=== PATIENT | male | born 1960 | race Caucasian/White ===

== ENCOUNTER 2017-03-07 17:47 | Inpatient (IN) | payer OTHER, MEDICARE ==
[~2017-03-07] VITALS: Ht 193 cm; Wt 147.1 kg
[~2017-03-07 17:47] MED LIST: AMLODIPINE BESYL5 MG PO; ASPIR 8181 M1 PO; ASPIRIN325 MG PO; COLACE100 MG PO; COUMADIN5 MG PO; Coumadin,Jantoven PO; DEXILANT60 MG PO; DIFLUCAN200 MG PO; FENOFIBRATE54 M1 PO; FLEXERIL10 MG PO; FUROSEMIDE40 MG PO; GLUCOPHAGE XR,500 MG PO; HUMALOG100 UNIT/1 SC; HYDROCODON-ACE1 EAC7 PO; IMDUR120 MG PO; ISOSORBIDE MON120 M1 PO; KLOR-CON M2020 MEQ PO; L-THYROXINE PO; LASIX40 MG PO; LEVOXYL25 MCG PO; LIPITOR40 MG PO; LISINOPRIL40 MG PO; LOFIBRA134 MG PO; LOFIBRA54 MG PO; LOVENOX40 MG/0.4 SC; Lovenox SC; METFORMIN HCL500 M1 PO; METFORMIN PO; MOTRIN800 MG PO; NITROSTAT0.4 MG SL; NORVASC5 MG PO; OXYCONTIN15 MG PO; PLAVIX75 MG PO; POTASSIUM CHLO20 ME2 PO; RANEXA500 MG PO; SIMVASTATIN80 M1 PO; STOOL SOFTENER100 MG PO; SYNTHROID125 MCG PO; TOFRANIL50 MG PO; TOPROL XL200 MG PO; TRAMADOL HCL E200 M1 PO; TRICOR145 MG PO; ULTRAM ER300 MG PO; ZANTAC150 M1 PO; ZANTAC150 MG PO; ZANTAC300 MG PO; ZESTRIL,PRINIVI40 MG PO; ZOFRAN4 MG PO
[2017-03-07 18:37] LABS: CHLORIDE 99 mEq/L (99-109); POTASSIUM 4.1 mEq/L (3.7-5.4); SODIUM 132 mEq/L (136-147)
[2017-03-07 18:38] LABS: INTER. NORMALIZED RATIO 1.2
[2017-03-07 18:39] LABS: GLUCOSE 311 mg/dL (70-99)
[2017-03-07 18:40] LABS: ANION GAP 10 MEQ/L (2-14); HEMATOCRIT 38.3 % (38.0-50.0); MCH 33.2 PG (29.0-34.0); MCHC 34.5 G/DL (30.0-36.0); MCV 96.5 FL (86-99); MEAN PLAT.VOLUME 10.8 uM^3 (9.0-12.4); RBC DIS.WIDTH-CV 12.8 % (11.8-14.6); RBC DIS.WIDTH-SD 45.5 % (39-53); RED BLOOD COUNT 3.97 M/uL (4.00-5.50); WHITE BLOOD COUNT 5.6 K/uL (4.1-10.2)
[2017-03-07 18:43] LABS: GFR ESTIMATE (CALCULATED) 51 mL/min/
[2017-03-07 18:44] LABS: UREA NITROGEN (BUN) 20 mg/dL (9-23)
[2017-03-07 18:49] LABS: TROP-I INTERPRETATION NEGATIVE; TROPONIN-I < 0.01 ng/mL (0.0-0.30)
[2017-03-07 20:24] LABS: PLATELET COUNT 60 K/uL (156-360)
[2017-03-07] MEDS ORDERED: LEVO-T25 MCG PO (21:18)
[2017-03-07] MEDS ORDERED: PLAVIX75 MG PO (21:21)
[2017-03-07] MEDS ORDERED: ASPIRIN325 MG PO (21:22)
[2017-03-07] MEDS ORDERED: TRAMADOL HCL300 MG PO (21:22)
[2017-03-07 21:23] LABS: PTT 36.6 (25-32)
[2017-03-07] MEDS ORDERED: FENOFIBRATE134 M1 PO (21:36)
[2017-03-07] MEDS ORDERED: MOTRIN600 MG PO (21:37)
[2017-03-07] MEDS ORDERED: TYLENOL EXTRA500 MG PO (21:38)
[2017-03-08 05:25] LABS: ADD MIUA? YES; BILIRUBIN NEGATIVE; BLOOD MODERATE; COLOR AMBER ((YELLOW)); GLUCOSE (STRIP) >=500; KETONES 5; LEUKOCYTES NEGATIVE; NITRITE NEGATIVE; PROTEIN (STRIP) 100; SPECIFIC GRAVITY 1.043 (1.000-1.030)
[2017-03-08 05:56] LABS: BACTERIA 3+ /HPF; EPITHELIAL CELLS 1+ /HPF; MUCUS 1+ /LPF; WHITE BLOOD CELLS 0-5 /HPF (0-5)
[2017-03-08 06:13] LABS: CHLORIDE 100 mEq/L (99-109); POTASSIUM 4.5 mEq/L (3.7-5.4); SODIUM 131 mEq/L (136-147)
[2017-03-08 06:15] LABS: GLUCOSE 329 mg/dL (70-99); HEMATOCRIT 36.8 % (38.0-50.0); MCHC 34.5 G/DL (30.0-36.0); MCV 98.7 FL (86-99); MEAN PLAT.VOLUME 11.4 uM^3 (9.0-12.4); PLATELET COUNT 60 K/uL (156-360); RBC DIS.WIDTH-CV 13.2 % (11.8-14.6); RBC DIS.WIDTH-SD 47.8 % (39-53); RED BLOOD COUNT 3.73 M/uL (4.00-5.50); WHITE BLOOD COUNT 7.3 K/uL (4.1-10.2)
[2017-03-08 06:17] LABS: ANION GAP 11 MEQ/L (2-14); TOTAL BILIRUBIN 1.8 mg/dL (0.0-1.0)
[2017-03-08 06:19] LABS: ALKALINE PHOSPHATASE 82 IU/L (3-129); GFR ESTIMATE (CALCULATED) 51 mL/min/
[2017-03-08 06:20] LABS: UREA NITROGEN (BUN) 21 mg/dL (9-23)
[2017-03-08 06:57] LABS: Estimated Average Glucose 235 mg/dL (70-123); HEMOGLOBIN A1c (GLYCOHEMOGLOB) 9.8 % HGB (Below 5.7)
[2017-03-08 07:55] LABS: POINT-OF-CARE METER ID UU13113702
[2017-03-08 08:57] LABS: INTER. NORMALIZED RATIO 1.1; PTT 44.8 (25-32)
[2017-03-08 09:09] LABS: TROP-I INTERPRETATION NEGATIVE; TROPONIN-I < 0.01 ng/mL (0.0-0.30)
[2017-03-08 11:23] LABS: POINT-OF-CARE METER ID UU13113702
[2017-03-08 14:56] LABS: INTER. NORMALIZED RATIO 1.1; PROTHROMBIN TIME 10.9 (9.2-11.2)
[2017-03-08 15:11] LABS: TROP-I INTERPRETATION NEGATIVE; TROPONIN-I < 0.01 ng/mL (0.0-0.30)
[2017-03-08 15:17] VITALS: BP 142/74
[2017-03-08 17:23] LABS: POINT-OF-CARE METER ID UU13113807
[2017-03-08 20:00] VITALS: BP 177/79
[2017-03-08 21:17] VITALS: BP 140/67
[2017-03-08 22:23] LABS: POINT-OF-CARE METER ID UU13113807
[2017-03-09] VITALS (17 sets, daily range): BP systolic 104–174; BP diastolic 57–98
[2017-03-09 02:57] LABS: POINT-OF-CARE METER ID UU13113807
[2017-03-09 03:35] LABS: HEMATOCRIT 34.2 % (38.0-50.0); MCH 33.6 PG (29.0-34.0); MCHC 34.2 G/DL (30.0-36.0); MCV 98.3 FL (86-99); MEAN PLAT.VOLUME 11.3 uM^3 (9.0-12.4); PLATELET COUNT 53 K/uL (156-360); RBC DIS.WIDTH-CV 13.1 % (11.8-14.6); RBC DIS.WIDTH-SD 46.5 % (39-53); RED BLOOD COUNT 3.48 M/uL (4.00-5.50)
[2017-03-09 03:55] LABS: CHLORIDE 101 mEq/L (99-109); POTASSIUM 4.4 mEq/L (3.7-5.4); SODIUM 129 mEq/L (136-147)
[2017-03-09 03:57] LABS: GLUCOSE 285 mg/dL (70-99)
[2017-03-09 03:58] LABS: ANION GAP 9 MEQ/L (2-14)
[2017-03-09 04:01] LABS: GFR ESTIMATE (CALCULATED) > 59 mL/min/
[2017-03-09 04:02] LABS: UREA NITROGEN (BUN) 21 mg/dL (9-23)
[2017-03-09 08:22] LABS: BASE EXCESS -2.8 mEq/L (-3 to +3); BICARBONATE 23.2 mEq/L (22-26); CARBOXY HGB 2.6 % (0-5); COMMENTS - BLOOD GASES A+C+; DEVICE VM; FI02 50 %; METHEMOGLOBIN 1.8 % (0-1.5); O2 FLOW 12 L/MIN; PCO2 44 mm Hg (35-45); PO2 85 mm Hg (80-100); SITE LR; TOTAL RESP RATE 22 resp/min; pH 7.33 (7.35-7.45)
[2017-03-09 08:32] LABS: POINT-OF-CARE METER ID UU13113698
[2017-03-09 11:37] LABS: POINT-OF-CARE METER ID UU13113698
[2017-03-09 13:18] LABS: BASE EXCESS -0.7 mEq/L (-3 to +3); BICARBONATE 24.9 mEq/L (22-26); CARBOXY HGB 2.7 % (0-5); METHEMOGLOBIN 1.5 % (0-1.5); PCO2 44 mm Hg (35-45); PO2 77 mm Hg (80-100); pH 7.36 (7.35-7.45)
[2017-03-09 13:19] LABS: LUPA PHOSPHOLIPID NEUTRALIZ Negative (Negative)
[2017-03-09 13:19] LABS: COMMENTS - BLOOD GASES A+C+; SITE RR
[2017-03-09 13:20] LABS: DEVICE HFNC; O2 FLOW 10 L/MIN
[2017-03-09 13:25] LABS: POINT-OF-CARE METER ID UU13113819
[2017-03-09 14:10] LABS: TROP-I INTERPRETATION NEGATIVE; TROPONIN-I 0.01 ng/mL (0.0-0.30)
[2017-03-09 15:07] LABS: ABS NEUTROPHIL COUNT 4.6; ATYPICAL LYMPHOCYTE 1.7 %; BAND NEUTROPHILS 10.4 % (0-8.0); EOSINOPHIL ABS CT 0; IMM.PLATELET FRACTION 7.5 (1-7); INSTRUMENT ABS NEUTROPHIL CT 4.1 K/uL; LYMPHOCYTES 10.4 % (15.0-45.0); MEAN PLAT.VOLUME 11.7 uM^3 (9.0-12.4); PLATELET COUNT 50 K/uL (156-360); SEG.NEUTROPHILS 73.1 % (46.0-76.0)
[2017-03-09 15:08] LABS: PLAT.SUFFICIENCY VERY DECREASED
[2017-03-09 15:11] LABS: METH RESISTANT S AUREUS PCR NEGATIVE (NEGATIVE)
[2017-03-09 15:23] LABS: PROBE CHECK PASS; SPECIMEN PROCESSING CONTROL PASS
[2017-03-09 16:40] LABS: HEMATOCRIT 33.9 % (38.0-50.0); MCH 33.6 PG (29.0-34.0); MCHC 33.6 G/DL (30.0-36.0); RBC DIS.WIDTH-CV 13.3 % (11.8-14.6); RBC DIS.WIDTH-SD 49.8 % (39-53); RED BLOOD COUNT 3.39 M/uL (4.00-5.50); WHITE BLOOD COUNT 5.5 K/uL (4.1-10.2)
[2017-03-09 17:24] LABS: POINT-OF-CARE METER ID UU14162636
[2017-03-09 19:34] LABS: INFLUENZA A VIRAL ANTIGEN NEGATIVE; INFLUENZA B VIRAL ANTIGEN NEGATIVE
[2017-03-09 19:45] LABS: ANION GAP 8 MEQ/L (2-14); CHLORIDE 102 MEQ/L (99-109); GFR ESTIMATE (CALCULATED) > 59 mL/min/; GLUCOSE 220 mg/dL (70-99); SAMPLE HEMOLYSIS CHECK 0; SAMPLE ICTERIC CHECK 0; SAMPLE LIPEMIA CHECK 0; SODIUM 133 MEQ/L (136-147); UREA NITROGEN (BUN) 19 mg/dL (9-23)
[2017-03-10] VITALS (24 sets, daily range): BP systolic 106–169; BP diastolic 63–97
[2017-03-10 05:52] LABS: BASE EXCESS -0.5 mEq/L (-3 to +3); BICARBONATE 24.2 mEq/L (22-26); COMMENTS - BLOOD GASES A+C+; DEVICE NCH; METHEMOGLOBIN 1.9 % (0-1.5); O2 FLOW 8 L/MIN; PCO2 39 mm Hg (35-45); PO2 74 mm Hg (80-100); SITE RR; TOTAL RESP RATE 24 resp/min
[2017-03-10 07:06] LABS: HEMATOCRIT 32.2 % (38.0-50.0); MCH 33.3 PG (29.0-34.0); MCHC 33.2 G/DL (30.0-36.0); MCV 100.3 FL (86-99); RBC DIS.WIDTH-CV 13.6 % (11.8-14.6); RBC DIS.WIDTH-SD 50.2 % (39-53); RED BLOOD COUNT 3.21 M/uL (4.00-5.50); WHITE BLOOD COUNT 5.5 K/uL (4.1-10.2)
[2017-03-10 07:45] LABS: IMM.PLATELET FRACTION 8.1 (1-7); MEAN PLAT.VOLUME 11.8 uM^3 (9.0-12.4); PLAT.SUFFICIENCY DECREASED; PLATELET COUNT 45 K/uL (156-360)
[2017-03-10 08:25] LABS: ANION GAP 10 MEQ/L (2-14); CHLORIDE 105 MEQ/L (99-109); GFR ESTIMATE (CALCULATED) > 59 mL/min/; GLUCOSE 225 mg/dL (70-99); POTASSIUM 3.7 MEQ/L (3.7-5.4); SAMPLE HEMOLYSIS CHECK 0; SAMPLE ICTERIC CHECK 0; SAMPLE LIPEMIA CHECK 0; SODIUM 136 MEQ/L (136-147); UREA NITROGEN (BUN) 19 mg/dL (9-23)
[2017-03-10 09:20] LABS: POINT-OF-CARE METER ID UU13113803
[2017-03-10 12:22] LABS: POINT-OF-CARE METER ID UU13113803
[2017-03-10 14:53] LABS: Heparin Induced Plt Ab Negative (Negative)
[2017-03-10 16:14] LABS: POINT-OF-CARE METER ID UU13113803
[2017-03-10 21:00] LABS: POINT-OF-CARE METER ID UU14174217
[2017-03-11] VITALS (21 sets, daily range): BP systolic 127–193; BP diastolic 59–99
[2017-03-11 07:26] LABS: HEMATOCRIT 33.3 % (38.0-50.0); MCH 33.2 PG (29.0-34.0); MCHC 32.7 G/DL (30.0-36.0); MCV 101.5 FL (86-99); MEAN PLAT.VOLUME 12.6 uM^3 (9.0-12.4); PLATELET COUNT 58 K/uL (156-360); RBC DIS.WIDTH-CV 14.1 % (11.8-14.6); RBC DIS.WIDTH-SD 53.1 % (39-53); RED BLOOD COUNT 3.28 M/uL (4.00-5.50); WHITE BLOOD COUNT 7.9 K/uL (4.1-10.2)
[2017-03-11 08:00] LABS: POINT-OF-CARE METER ID UU13113803
[2017-03-11 08:14] LABS: ANION GAP 11 MEQ/L (2-14); CHLORIDE 106 MEQ/L (99-109); GFR ESTIMATE (CALCULATED) > 59 mL/min/; GLUCOSE 150 mg/dL (70-99); POTASSIUM 3.7 MEQ/L (3.7-5.4); SAMPLE HEMOLYSIS CHECK 0; SAMPLE ICTERIC CHECK 0; SAMPLE LIPEMIA CHECK 0; SODIUM 137 MEQ/L (136-147); UREA NITROGEN (BUN) 18 mg/dL (9-23)
[2017-03-11 11:56] LABS: POINT-OF-CARE METER ID UU13113803
[2017-03-11 16:48] LABS: POINT-OF-CARE METER ID UU13113803
[2017-03-11 19:34] LABS: BASE EXCESS 1.6 mEq/L (-3 to +3); BICARBONATE 25.8 mEq/L (22-26); CARBOXY HGB 2.3 % (0-5); COMMENTS - BLOOD GASES A+C+; DEVICE HFNC; METHEMOGLOBIN 1.5 % (0-1.5); O2 FLOW 6 L/MIN; PCO2 38 mm Hg (35-45); PO2 66 mm Hg (80-100); SITE RR; pH 7.44 (7.35-7.45)
[2017-03-11 19:35] LABS: TOTAL RESP RATE 22 resp/min
[2017-03-11 22:41] LABS: POINT-OF-CARE METER ID UU13113803
[2017-03-12] VITALS (24 sets, daily range): BP systolic 102–203; BP diastolic 65–100
[2017-03-12 01:46] LABS: ALKALINE PHOSPHATASE 98 IU/L (3-129)
[2017-03-12 01:48] LABS: DIRECT BILIRUBIN 1.6 mg/dL (0.0-0.3)
[2017-03-12 01:50] LABS: TOTAL BILIRUBIN 2.3 mg/dL (0.0-1.0)
[2017-03-12 03:39] LABS: HEMATOCRIT 33.1 % (38.0-50.0); MCH 33.2 PG (29.0-34.0); MCHC 33.5 G/DL (30.0-36.0); MCV 99.1 FL (86-99); MEAN PLAT.VOLUME 12.2 uM^3 (9.0-12.4); RBC DIS.WIDTH-CV 14.1 % (11.8-14.6); RBC DIS.WIDTH-SD 51.8 % (39-53); RED BLOOD COUNT 3.34 M/uL (4.00-5.50)
[2017-03-12 03:40] LABS: PLATELET COUNT 106 K/uL (156-360); WHITE BLOOD COUNT 10.9 K/uL (4.1-10.2)
[2017-03-12 04:34] LABS: VANCOMYCIN, TROUGH 11.7 MCG/ML (10-20)
[2017-03-12 08:31] LABS: POINT-OF-CARE METER ID UU13113803
[2017-03-12 10:35] LABS: ANION GAP 12 MEQ/L (2-14); CHLORIDE 106 MEQ/L (99-109); GFR ESTIMATE (CALCULATED) > 59 mL/min/; GLUCOSE 131 mg/dL (70-99); POTASSIUM 3.3 MEQ/L (3.7-5.4); SODIUM 139 MEQ/L (136-147); UREA NITROGEN (BUN) 17 mg/dL (9-23)
[2017-03-12 13:00] LABS: POINT-OF-CARE METER ID UU13113803
[2017-03-12 13:43] LABS: MAGNESIUM 1.8 mg/dl (1.3-2.7)
[2017-03-12 16:14] LABS: TROP-I INTERPRETATION INDETERMINATE; TROPONIN-I 0.32 ng/mL (0.0-0.30)
[2017-03-12 17:07] LABS: UFH SRA Result Negative (Negative)
[2017-03-12 17:39] LABS: POINT-OF-CARE METER ID UU13113803
[2017-03-12 22:31] LABS: TROP-I INTERPRETATION NEGATIVE; TROPONIN-I 0.16 ng/mL (0.0-0.30)
[2017-03-13] VITALS (27 sets, daily range): BP systolic 134–245; BP diastolic 66–125
[2017-03-13 02:21] LABS: POINT-OF-CARE METER ID UU13113803
[2017-03-13 04:46] LABS: EOSINOPHIL (%) 0 % (0-5); HEMATOCRIT 35.6 % (38.0-50.0); IMMATURE GRANULOCYTE (%) 1.3 % (0.0-0.7); IMMATURE GRANULOCYTE COUNT 0.1 K/uL; INSTRUMENT ABS NEUTROPHIL CT 7.3 K/uL; LYMPHOCYTE COUNT 0.9 K/uL (1.0-2.8); MCH 32.6 PG (29.0-34.0); MCHC 32.6 G/DL (30.0-36.0); MEAN PLAT.VOLUME 12.2 uM^3 (9.0-12.4); MONOCYTE (%) 2.9 % (3-12); MONOCYTE COUNT 0.3 K/uL (0-0.8); NEUTROPHIL (%) 85.4 % (45-76); NEUTROPHIL COUNT 7.3 K/uL (1.8-6.4); RBC DIS.WIDTH-CV 14.6 % (11.8-14.6); RBC DIS.WIDTH-SD 53.9 % (39-53); RED BLOOD COUNT 3.56 M/uL (4.00-5.50); WHITE BLOOD COUNT 8.6 K/uL (4.1-10.2)
[2017-03-13 04:55] LABS: CHLORIDE 108 mEq/L (99-109); POTASSIUM 3.9 mEq/L (3.7-5.4); SODIUM 143 mEq/L (136-147)
[2017-03-13 04:56] LABS: MAGNESIUM 1.9 mg/dL (1.3-2.7)
[2017-03-13 05:07] LABS: TROP-I INTERPRETATION NEGATIVE
[2017-03-13 05:17] LABS: GFR ESTIMATE (CALCULATED) > 59 mL/min/; GLUCOSE 371 mg/dL (70-99); TOTAL BILIRUBIN 1.8 MG/DL (0.0-1.0); UREA NITROGEN (BUN) 28 mg/dL (9-23)
[2017-03-13 05:18] LABS: ALKALINE PHOSPHATASE 96 IU/L (3-129); ANION GAP 21 MEQ/L (2-14); CREATINE KINASE 48 IU/L (1-294); DIRECT BILIRUBIN 1.3 mg/dL (0.0-0.3)
[2017-03-13 05:26] LABS: PLATELET COUNT 168 K/uL (156-360)
[2017-03-13 06:28] LABS: CARBON DIOXIDE (BICARBONATE) 17.1 MEQ/L (20-31)
[2017-03-13 12:17] LABS: ADD MIUA? YES; BILIRUBIN NEGATIVE; BLOOD MODERATE; COLOR YELLOW ((YELLOW)); GLUCOSE (STRIP) >=500; KETONES 20; LEUKOCYTES NEGATIVE; NITRITE NEGATIVE; PROTEIN (STRIP) NEGATIVE; SPECIFIC GRAVITY 1.024 (1.000-1.030)
[2017-03-13 12:19] LABS: POINT-OF-CARE METER ID UU13113803
[2017-03-13 12:56] LABS: BACTERIA RARE /HPF; EPITHELIAL CELLS RARE /HPF; MUCUS TRACE /LPF; RED BLOOD CELLS 0-5 /HPF (0-5); UCUL ADDED? NO; WHITE BLOOD CELLS 0-5 /HPF (0-5)
[2017-03-13 18:28] LABS: POINT-OF-CARE METER ID UU13113803
[2017-03-14] VITALS (22 sets, daily range): BP systolic 141–218; BP diastolic 73–110
[2017-03-14 00:44] LABS: POINT-OF-CARE METER ID UU13113803
[2017-03-14 04:07] LABS: EOSINOPHIL (%) 0 % (0-5); HEMATOCRIT 30.9 % (38.0-50.0); IMMATURE GRANULOCYTE COUNT 0.1 K/uL; INSTRUMENT ABS NEUTROPHIL CT 8.1 K/uL; MCH 33.3 PG (29.0-34.0); MCHC 34.6 G/DL (30.0-36.0); MCV 96.3 FL (86-99); MEAN PLAT.VOLUME 11.6 uM^3 (9.0-12.4); MONOCYTE (%) 5.5 % (3-12); MONOCYTE COUNT 0.5 K/uL (0-0.8); NEUTROPHIL (%) 82.8 % (45-76); NEUTROPHIL COUNT 8.1 K/uL (1.8-6.4); PLATELET COUNT 202 K/uL (156-360); RBC DIS.WIDTH-CV 14.6 % (11.8-14.6); RBC DIS.WIDTH-SD 51.4 % (39-53); RED BLOOD COUNT 3.21 M/uL (4.00-5.50); WHITE BLOOD COUNT 9.8 K/uL (4.1-10.2)
[2017-03-14 04:15] LABS: CHLORIDE 108 mEq/L (99-109); SODIUM 140 mEq/L (136-147)
[2017-03-14 04:18] LABS: GLUCOSE 309 mg/dL (70-99)
[2017-03-14 04:19] LABS: ANION GAP 11 MEQ/L (2-14); TOTAL BILIRUBIN 1.9 mg/dL (0.0-1.0)
[2017-03-14 04:21] LABS: ALKALINE PHOSPHATASE 106 IU/L (3-129)
[2017-03-14 04:22] LABS: GFR ESTIMATE (CALCULATED) > 59 mL/min/
[2017-03-14 04:23] LABS: DIRECT BILIRUBIN 1.5 mg/dL (0.0-0.3); UREA NITROGEN (BUN) 32 mg/dL (9-23)
[2017-03-14 04:26] LABS: POTASSIUM 3.1 mEq/L (3.7-5.4)
[2017-03-14 12:17] LABS: POINT-OF-CARE METER ID UU14162636
[2017-03-14 15:22] LABS: TROP-I INTERPRETATION NEGATIVE; TROPONIN-I 0.22 ng/mL (0.0-0.30)
[2017-03-14 17:41] LABS: POINT-OF-CARE METER ID UU14162636
[2017-03-14 23:14] LABS: POINT-OF-CARE METER ID UU14162636
[2017-03-14 23:29] LABS: TROP-I INTERPRETATION NEGATIVE; TROPONIN-I 0.25 ng/mL (0.0-0.30)
[2017-03-15] VITALS (13 sets, daily range): BP systolic 0–192; BP diastolic 0–112
[2017-03-15 06:38] LABS: EOSINOPHIL (%) 0.1 % (0-5); HEMATOCRIT 33.6 % (38.0-50.0); IMMATURE GRANULOCYTE COUNT 0.1 K/uL; INSTRUMENT ABS NEUTROPHIL CT 7.3 K/uL; LYMPHOCYTE COUNT 1.1 K/uL (1.0-2.8); MCH 32.9 PG (29.0-34.0); MCHC 33.3 G/DL (30.0-36.0); MCV 98.8 FL (86-99); MEAN PLAT.VOLUME 11.6 uM^3 (9.0-12.4); MONOCYTE (%) 3.9 % (3-12); MONOCYTE COUNT 0.3 K/uL (0-0.8); NEUTROPHIL (%) 82.9 % (45-76); NEUTROPHIL COUNT 7.3 K/uL (1.8-6.4); PLATELET COUNT 203 K/uL (156-360); RBC DIS.WIDTH-SD 54.4 % (39-53); WHITE BLOOD COUNT 8.8 K/uL (4.1-10.2)
[2017-03-15 06:56] LABS: ALKALINE PHOSPHATASE 98 IU/L (3-129); ANION GAP 8 MEQ/L (2-14); CHLORIDE 103 MEQ/L (99-109); DIRECT BILIRUBIN 1.1 mg/dL (0.0-0.3); GFR ESTIMATE (CALCULATED) > 59 mL/min/; GLUCOSE 280 mg/dL (70-99); POTASSIUM 3.5 MEQ/L (3.7-5.4); SAMPLE HEMOLYSIS CHECK 0; SAMPLE ICTERIC CHECK 0; SAMPLE LIPEMIA CHECK 0; SODIUM 137 MEQ/L (136-147); TOTAL BILIRUBIN 1.9 MG/DL (0.0-1.0); UREA NITROGEN (BUN) 25 mg/dL (9-23)
[2017-03-15 07:07] LABS: TROP-I INTERPRETATION NEGATIVE; TROPONIN-I 0.15 ng/mL (0.0-0.30)
[2017-03-15 17:48] LABS: POINT-OF-CARE METER ID UU14162636
[2017-03-15 22:36] LABS: POINT-OF-CARE METER ID UU14162636
[2017-03-16] VITALS: BP 145/64
[2017-03-16 05:49] LABS: EOSINOPHIL (%) 0.4 % (0-5); HEMATOCRIT 31.9 % (38.0-50.0); IMMATURE GRANULOCYTE (%) 1.5 % (0.0-0.7); IMMATURE GRANULOCYTE COUNT 0.1 K/uL; INSTRUMENT ABS NEUTROPHIL CT 7.2 K/uL; LYMPHOCYTE COUNT 1.4 K/uL (1.0-2.8); MCH 32.6 PG (29.0-34.0); MCV 101.9 FL (86-99); MEAN PLAT.VOLUME 12.1 uM^3 (9.0-12.4); MONOCYTE (%) 3.1 % (3-12); MONOCYTE COUNT 0.3 K/uL (0-0.8); NEUTROPHIL (%) 79.5 % (45-76); NEUTROPHIL COUNT 7.2 K/uL (1.8-6.4); PLATELET COUNT 191 K/uL (156-360); RBC DIS.WIDTH-SD 56.2 % (39-53); RED BLOOD COUNT 3.13 M/uL (4.00-5.50); WHITE BLOOD COUNT 9.1 K/uL (4.1-10.2)
[2017-03-16 06:12] LABS: ANION GAP 5 MEQ/L (2-14); CHLORIDE 103 MEQ/L (99-109); GFR ESTIMATE (CALCULATED) > 59 mL/min/; GLUCOSE 136 mg/dL (70-99); MAGNESIUM 1.9 mg/dl (1.3-2.7); POTASSIUM 3.3 MEQ/L (3.7-5.4); SAMPLE HEMOLYSIS CHECK 0; SAMPLE ICTERIC CHECK 0; SAMPLE LIPEMIA CHECK 0; SODIUM 137 MEQ/L (136-147); UREA NITROGEN (BUN) 18 mg/dL (9-23)
[2017-03-16 08:00] VITALS: BP 161/86
[2017-03-16 08:10] LABS: POINT-OF-CARE METER ID UU14162636
[2017-03-16 13:00] VITALS: BP 130/70
[2017-03-16 16:46] LABS: POINT-OF-CARE METER ID UU13113803
[2017-03-16 18:00] VITALS: BP 152/91
[2017-03-16 19:00] VITALS: BP 152/91
[2017-03-16 21:00] VITALS: BP 152/91
[2017-03-17] VITALS: BP 188/76
[2017-03-17 04:00] VITALS: BP 147/87
[2017-03-17 06:00] VITALS: BP 147/87
[2017-03-17 06:32] LABS: ANION GAP 8 MEQ/L (2-14); CHLORIDE 101 MEQ/L (99-109); GFR ESTIMATE (CALCULATED) > 59 mL/min/; GLUCOSE 143 mg/dL (70-99); MAGNESIUM 1.9 mg/dl (1.3-2.7); POTASSIUM 3.6 MEQ/L (3.7-5.4); SAMPLE HEMOLYSIS CHECK 0; SAMPLE ICTERIC CHECK 0; SAMPLE LIPEMIA CHECK 0; SODIUM 136 MEQ/L (136-147); UREA NITROGEN (BUN) 16 mg/dL (9-23)
[2017-03-17 06:40] LABS: EOSINOPHIL (%) 0.6 % (0-5); EOSINOPHIL COUNT 0.1 K/uL (0-0.3); HEMATOCRIT 35.7 % (38.0-50.0); IMMATURE GRANULOCYTE (%) 2.4 % (0.0-0.7); IMMATURE GRANULOCYTE COUNT 0.2 K/uL; INSTRUMENT ABS NEUTROPHIL CT 7.6 K/uL; LYMPHOCYTE COUNT 1.6 K/uL (1.0-2.8); MCHC 32.2 G/DL (30.0-36.0); MCV 102.6 FL (86-99); MEAN PLAT.VOLUME 11.9 uM^3 (9.0-12.4); MONOCYTE (%) 4.4 % (3-12); MONOCYTE COUNT 0.4 K/uL (0-0.8); NEUTROPHIL (%) 76.1 % (45-76); NEUTROPHIL COUNT 7.6 K/uL (1.8-6.4); RBC DIS.WIDTH-CV 14.9 % (11.8-14.6); RBC DIS.WIDTH-SD 55.9 % (39-53); RED BLOOD COUNT 3.48 M/uL (4.00-5.50)
[2017-03-17 06:52] LABS: PLATELET COUNT 251 K/uL (156-360)
[2017-03-17 09:00] VITALS: BP 153/69
[2017-03-17 12:45] VITALS: BP 118/70
[2017-03-17 20:00] VITALS: BP 134/73
[2017-03-17 22:25] LABS: POINT-OF-CARE METER ID UU14174217
[2017-03-18] VITALS (7 sets, daily range): BP systolic 124–158; BP diastolic 71–741
[2017-03-18 07:25] LABS: EOSINOPHIL (%) 0.9 % (0-5); EOSINOPHIL COUNT 0.1 K/uL (0-0.3); HEMATOCRIT 30.3 % (38.0-50.0); IMMATURE GRANULOCYTE (%) 1.9 % (0.0-0.7); IMMATURE GRANULOCYTE COUNT 0.2 K/uL; INSTRUMENT ABS NEUTROPHIL CT 5.9 K/uL; LYMPHOCYTE COUNT 1.3 K/uL (1.0-2.8); MCH 33.6 PG (29.0-34.0); MCHC 32.7 G/DL (30.0-36.0); MCV 102.7 FL (86-99); MEAN PLAT.VOLUME 10.3 uM^3 (9.0-12.4); MONOCYTE (%) 4.6 % (3-12); MONOCYTE COUNT 0.4 K/uL (0-0.8); NEUTROPHIL (%) 75.2 % (45-76); NEUTROPHIL COUNT 5.9 K/uL (1.8-6.4); PLATELET COUNT 270 K/uL (156-360); RBC DIS.WIDTH-CV 14.7 % (11.8-14.6); RBC DIS.WIDTH-SD 55.8 % (39-53); RED BLOOD COUNT 2.95 M/uL (4.00-5.50); WHITE BLOOD COUNT 7.8 K/uL (4.1-10.2)
[2017-03-18 09:14] LABS: ANION GAP 6 MEQ/L (2-14); CHLORIDE 103 MEQ/L (99-109); GFR ESTIMATE (CALCULATED) > 59 mL/min/; GLUCOSE 149 mg/dL (70-99); MAGNESIUM 2.1 mg/dl (1.3-2.7); POTASSIUM 4.5 MEQ/L (3.7-5.4); SAMPLE HEMOLYSIS CHECK 0; SAMPLE ICTERIC CHECK 0; SAMPLE LIPEMIA CHECK 0; SODIUM 136 MEQ/L (136-147); UREA NITROGEN (BUN) 15 mg/dL (9-23)
[2017-03-18 23:26] LABS: POINT-OF-CARE METER ID UU14188577
[2017-03-19 02:41] VITALS: BP 142/81
[2017-03-19 04:56] LABS: EOSINOPHIL (%) 0.8 % (0-5); EOSINOPHIL COUNT 0.1 K/uL (0-0.3); HEMATOCRIT 29.5 % (38.0-50.0); IMMATURE GRANULOCYTE (%) 1.5 % (0.0-0.7); IMMATURE GRANULOCYTE COUNT 0.1 K/uL; INSTRUMENT ABS NEUTROPHIL CT 5.3 K/uL; LYMPHOCYTE COUNT 1.4 K/uL (1.0-2.8); MCHC 31.9 G/DL (30.0-36.0); MCV 103.5 FL (86-99); MEAN PLAT.VOLUME 10.5 uM^3 (9.0-12.4); MONOCYTE (%) 6.2 % (3-12); MONOCYTE COUNT 0.5 K/uL (0-0.8); NEUTROPHIL (%) 72.5 % (45-76); NEUTROPHIL COUNT 5.3 K/uL (1.8-6.4); PLATELET COUNT 326 K/uL (156-360); RBC DIS.WIDTH-CV 14.8 % (11.8-14.6); RBC DIS.WIDTH-SD 55.8 % (39-53); RED BLOOD COUNT 2.85 M/uL (4.00-5.50); WHITE BLOOD COUNT 7.3 K/uL (4.1-10.2)
[2017-03-19 05:10] LABS: CHLORIDE 104 mEq/L (99-109); SODIUM 137 mEq/L (136-147)
[2017-03-19 05:11] LABS: MAGNESIUM 1.6 mg/dL (1.3-2.7)
[2017-03-19 05:13] LABS: ANION GAP 5 MEQ/L (2-14)
[2017-03-19 05:15] LABS: GLUCOSE 84 mg/dL (70-99)
[2017-03-19 05:16] LABS: GFR ESTIMATE (CALCULATED) > 59 mL/min/; UREA NITROGEN (BUN) 15 mg/dL (9-23)
[2017-03-19 05:29] VITALS: BP 138/80
[2017-03-19 08:02] VITALS: BP 167/92
[2017-03-19 16:42] VITALS: BP 125/63
[2017-03-19 19:27] VITALS: BP 130/66
[2017-03-19 23:52] VITALS: BP 135/70
[2017-03-20 03:34] VITALS: BP 139/76
[2017-03-20 05:20] LABS: EOSINOPHIL (%) 0.8 % (0-5); EOSINOPHIL COUNT 0.1 K/uL (0-0.3); HEMATOCRIT 29.5 % (38.0-50.0); IMMATURE GRANULOCYTE COUNT 0.1 K/uL; INSTRUMENT ABS NEUTROPHIL CT 6.6 K/uL; LYMPHOCYTE COUNT 1.8 K/uL (1.0-2.8); MCH 32.9 PG (29.0-34.0); MCHC 31.9 G/DL (30.0-36.0); MCV 103.1 FL (86-99); MEAN PLAT.VOLUME 10.3 uM^3 (9.0-12.4); MONOCYTE (%) 6.2 % (3-12); MONOCYTE COUNT 0.6 K/uL (0-0.8); NEUTROPHIL (%) 71.8 % (45-76); NEUTROPHIL COUNT 6.6 K/uL (1.8-6.4); PLATELET COUNT 377 K/uL (156-360); RBC DIS.WIDTH-CV 14.7 % (11.8-14.6); RBC DIS.WIDTH-SD 54.6 % (39-53); RED BLOOD COUNT 2.86 M/uL (4.00-5.50); WHITE BLOOD COUNT 9.1 K/uL (4.1-10.2)
[2017-03-20 05:58] LABS: ANION GAP 7 MEQ/L (2-14); CHLORIDE 101 MEQ/L (99-109); GFR ESTIMATE (CALCULATED) > 59 mL/min/; GLUCOSE 69 mg/dL (70-99); POTASSIUM 4.4 MEQ/L (3.7-5.4); SAMPLE HEMOLYSIS CHECK 0; SAMPLE ICTERIC CHECK 0; SAMPLE LIPEMIA CHECK 0; SODIUM 136 MEQ/L (136-147); UREA NITROGEN (BUN) 14 mg/dL (9-23)
[2017-03-20 08:08] VITALS: BP 134/85
[2017-03-20 11:56] LABS: POINT-OF-CARE METER ID UU14188577
[2017-03-20 12:09] VITALS: BP 100/58
[2017-03-20 16:40] LABS: POINT-OF-CARE METER ID UU14188577
[2017-03-20 17:16] VITALS: BP 105/59
[2017-03-20 20:33] VITALS: BP 121/60
[2017-03-20 21:54] LABS: POINT-OF-CARE METER ID UU14149397
[2017-03-21 00:36] VITALS: BP 138/72
[2017-03-21 05:28] LABS: EOSINOPHIL (%) 1.3 % (0-5); EOSINOPHIL COUNT 0.1 K/uL (0-0.3); HEMATOCRIT 29.2 % (38.0-50.0); IMMATURE GRANULOCYTE (%) 0.9 % (0.0-0.7); IMMATURE GRANULOCYTE COUNT 0.1 K/uL; INSTRUMENT ABS NEUTROPHIL CT 5.5 K/uL; LYMPHOCYTE COUNT 1.4 K/uL (1.0-2.8); MCH 33.2 PG (29.0-34.0); MCHC 31.5 G/DL (30.0-36.0); MCV 105.4 FL (86-99); MEAN PLAT.VOLUME 9.8 uM^3 (9.0-12.4); MONOCYTE (%) 5.8 % (3-12); MONOCYTE COUNT 0.4 K/uL (0-0.8); NEUTROPHIL COUNT 5.5 K/uL (1.8-6.4); PLATELET COUNT 388 K/uL (156-360); RBC DIS.WIDTH-SD 55.9 % (39-53); RED BLOOD COUNT 2.77 M/uL (4.00-5.50); WHITE BLOOD COUNT 7.5 K/uL (4.1-10.2)
[2017-03-21 06:01] LABS: ANION GAP 7 MEQ/L (2-14); CHLORIDE 99 MEQ/L (99-109); GFR ESTIMATE (CALCULATED) > 59 mL/min/; MAGNESIUM 2.1 mg/dl (1.3-2.7); POTASSIUM 4.6 MEQ/L (3.7-5.4); SAMPLE HEMOLYSIS CHECK 0; SAMPLE ICTERIC CHECK 0; SAMPLE LIPEMIA CHECK 0; SODIUM 136 MEQ/L (136-147); UREA NITROGEN (BUN) 17 mg/dL (9-23)
[2017-03-21 06:02] LABS: GLUCOSE 98 mg/dL (70-99)
[2017-03-21 07:00] VITALS: BP 124/69
[2017-03-21 12:01] LABS: POINT-OF-CARE METER ID UU14188577
[2017-03-21 12:27] VITALS: BP 115/67
[2017-03-21 15:36] VITALS: BP 101/62
[2017-03-21 19:34] LABS: DRVVT Mixing Study Interp Not Indicated (()); PROTEIN C FUNCTIONAL ACTIVITY+ 52 % (70-180); PTT-LA 87 sec (<=40); PTT-LA Reflex Has been added (()); Protein S, Free 121 % normal (57-171); dRVVT Screen 50 sec (<=45)
[2017-03-21 19:52] VITALS: BP 93/54
[2017-03-22] VITALS (7 sets, daily range): BP systolic 96–119; BP diastolic 54–69
[2017-03-22 05:25] LABS: EOSINOPHIL (%) 1.4 % (0-5); EOSINOPHIL COUNT 0.1 K/uL (0-0.3); HEMATOCRIT 28.8 % (38.0-50.0); IMMATURE GRANULOCYTE (%) 0.7 % (0.0-0.7); IMMATURE GRANULOCYTE COUNT 0.1 K/uL; INSTRUMENT ABS NEUTROPHIL CT 5.9 K/uL; LYMPHOCYTE COUNT 1.5 K/uL (1.0-2.8); MCH 33.3 PG (29.0-34.0); MCHC 31.6 G/DL (30.0-36.0); MCV 105.5 FL (86-99); MEAN PLAT.VOLUME 10.2 uM^3 (9.0-12.4); MONOCYTE (%) 5.6 % (3-12); MONOCYTE COUNT 0.5 K/uL (0-0.8); NEUTROPHIL (%) 73.2 % (45-76); NEUTROPHIL COUNT 5.9 K/uL (1.8-6.4); PLATELET COUNT 439 K/uL (156-360); RBC DIS.WIDTH-SD 55.1 % (39-53); RED BLOOD COUNT 2.73 M/uL (4.00-5.50)
[2017-03-22 05:37] LABS: ANION GAP 8 MEQ/L (2-14); C-REACTIVE PROTEIN 119.4 MG/L (0-10); CHLORIDE 99 MEQ/L (99-109); GFR ESTIMATE (CALCULATED) > 59 mL/min/; GLUCOSE 87 mg/dL (70-99); MAGNESIUM 2.1 mg/dl (1.3-2.7); POTASSIUM 4.7 MEQ/L (3.7-5.4); SAMPLE HEMOLYSIS CHECK 0; SAMPLE ICTERIC CHECK 0; SAMPLE LIPEMIA CHECK 0; SODIUM 135 MEQ/L (136-147); UREA NITROGEN (BUN) 20 mg/dL (9-23)
[2017-03-22 09:16] LABS: ERTH.SED.RATE 63 MM/HR (0-20)
[2017-03-22 12:26] LABS: ANTITHROMBIN III ACTIVITY+ 74 % activi (80-120)
[2017-03-22 16:52] LABS: POINT-OF-CARE METER ID UU14149397
[2017-03-22 21:23] LABS: POINT-OF-CARE METER ID UU14188577
[2017-03-23] VITALS (7 sets, daily range): BP systolic 103–142; BP diastolic 60–77
[2017-03-23 05:22] LABS: EOSINOPHIL (%) 2.1 % (0-5); EOSINOPHIL COUNT 0.1 K/uL (0-0.3); IMMATURE GRANULOCYTE (%) 0.6 % (0.0-0.7); INSTRUMENT ABS NEUTROPHIL CT 4.6 K/uL; LYMPHOCYTE COUNT 1.4 K/uL (1.0-2.8); MCH 33.6 PG (29.0-34.0); MCHC 31.9 G/DL (30.0-36.0); MCV 105.5 FL (86-99); MEAN PLAT.VOLUME 9.7 uM^3 (9.0-12.4); MONOCYTE (%) 6.6 % (3-12); MONOCYTE COUNT 0.4 K/uL (0-0.8); NEUTROPHIL (%) 69.2 % (45-76); NEUTROPHIL COUNT 4.6 K/uL (1.8-6.4); PLATELET COUNT 413 K/uL (156-360); RBC DIS.WIDTH-CV 14.9 % (11.8-14.6); RBC DIS.WIDTH-SD 54.7 % (39-53); RED BLOOD COUNT 2.56 M/uL (4.00-5.50); WHITE BLOOD COUNT 6.6 K/uL (4.1-10.2)
[2017-03-23 05:50] LABS: ANION GAP 6 MEQ/L (2-14); CHLORIDE 100 MEQ/L (99-109); GFR ESTIMATE (CALCULATED) > 59 mL/min/; GLUCOSE 89 mg/dL (70-99); MAGNESIUM 2.1 mg/dl (1.3-2.7); POTASSIUM 4.2 MEQ/L (3.7-5.4); SAMPLE HEMOLYSIS CHECK 0; SAMPLE ICTERIC CHECK 0; SAMPLE LIPEMIA CHECK 0; SODIUM 136 MEQ/L (136-147); UREA NITROGEN (BUN) 17 mg/dL (9-23)
[2017-03-23 06:50] LABS: POINT-OF-CARE METER ID UU14149397
[2017-03-23 10:48] LABS: APPEARANCE YELLOW/CLOUDY
[2017-03-23 10:49] LABS: RED CELL AREA COUNTED 8; RED CELL COUNT 358 /MM^3 (0-1); RED CELL DILUTION 1; WBC AREA COUNTED 0.4; WBC DILUTION 1; WHITE CELL COUNT 14175 /MM^3 (0-200.0); WHITE CELL RAW COUNT 567
[2017-03-23 10:50] LABS: MONO RAW COUNT 4; MONONUCLEAR WBC'S 4 %; POLY RAW COUNT 96; POLYNUCLEAR WBC'S 96 % (0-25); SYNOVIAL FLUID EOSINOPHILS 0 % (0-25)
[2017-03-23 11:00] LABS: CRYSTALS NO CRYSTALS SEEN
[2017-03-23 12:00] LABS: POINT-OF-CARE METER ID UU14149397
[2017-03-24 03:11] VITALS: BP 127/69
[2017-03-24 05:20] LABS: EOSINOPHIL (%) 1.8 % (0-5); EOSINOPHIL COUNT 0.1 K/uL (0-0.3); HEMATOCRIT 26.7 % (38.0-50.0); IMMATURE GRANULOCYTE (%) 0.7 % (0.0-0.7); INSTRUMENT ABS NEUTROPHIL CT 4.5 K/uL; LYMPHOCYTE COUNT 1.1 K/uL (1.0-2.8); MCH 32.8 PG (29.0-34.0); MCHC 31.1 G/DL (30.0-36.0); MCV 105.5 FL (86-99); MEAN PLAT.VOLUME 9.7 uM^3 (9.0-12.4); MONOCYTE (%) 5.6 % (3-12); MONOCYTE COUNT 0.3 K/uL (0-0.8); NEUTROPHIL (%) 74.3 % (45-76); NEUTROPHIL COUNT 4.5 K/uL (1.8-6.4); PLATELET COUNT 405 K/uL (156-360); RBC DIS.WIDTH-CV 15.3 % (11.8-14.6); RBC DIS.WIDTH-SD 56.7 % (39-53); RED BLOOD COUNT 2.53 M/uL (4.00-5.50); WHITE BLOOD COUNT 6.1 K/uL (4.1-10.2)
[2017-03-24 05:45] LABS: ANION GAP 6 MEQ/L (2-14); CHLORIDE 98 MEQ/L (99-109); GFR ESTIMATE (CALCULATED) > 59 mL/min/; MAGNESIUM 2.1 mg/dl (1.3-2.7); POTASSIUM 4.4 MEQ/L (3.7-5.4); SAMPLE HEMOLYSIS CHECK 0; SAMPLE ICTERIC CHECK 0; SAMPLE LIPEMIA CHECK 0; SODIUM 134 MEQ/L (136-147); UREA NITROGEN (BUN) 16 mg/dL (9-23)
[2017-03-24 05:46] LABS: GLUCOSE 147 mg/dL (70-99)
[2017-03-24 08:56] VITALS: BP 119/56
[2017-03-24 09:01] LABS: POINT-OF-CARE METER ID UU14188577
[2017-03-24 11:20] VITALS: BP 120/61
[2017-03-24 11:21] LABS: POINT-OF-CARE METER ID UU14188577
[2017-03-24 16:51] LABS: POINT-OF-CARE METER ID UU14188577
[2017-03-24 17:46] VITALS: BP 125/56
[2017-03-24 19:34] VITALS: BP 98/53
[2017-03-24 23:29] VITALS: BP 119/64
[2017-03-25 03:59] VITALS: BP 123/63
[2017-03-25 05:57] LABS: EOSINOPHIL (%) 2.5 % (0-5); EOSINOPHIL COUNT 0.1 K/uL (0-0.3); HEMATOCRIT 27.2 % (38.0-50.0); IMMATURE GRANULOCYTE (%) 0.6 % (0.0-0.7); INSTRUMENT ABS NEUTROPHIL CT 3.4 K/uL; LYMPHOCYTE COUNT 1.3 K/uL (1.0-2.8); MCH 33.2 PG (29.0-34.0); MCHC 31.6 G/DL (30.0-36.0); MEAN PLAT.VOLUME 9.7 uM^3 (9.0-12.4); MONOCYTE (%) 7.7 % (3-12); MONOCYTE COUNT 0.4 K/uL (0-0.8); NEUTROPHIL (%) 64.8 % (45-76); NEUTROPHIL COUNT 3.4 K/uL (1.8-6.4); PLATELET COUNT 371 K/uL (156-360); RBC DIS.WIDTH-CV 15.6 % (11.8-14.6); RBC DIS.WIDTH-SD 57.6 % (39-53); RED BLOOD COUNT 2.59 M/uL (4.00-5.50); WHITE BLOOD COUNT 5.3 K/uL (4.1-10.2)
[2017-03-25 05:59] LABS: ANION GAP 8 MEQ/L (2-14); CHLORIDE 98 MEQ/L (99-109); GFR ESTIMATE (CALCULATED) > 59 mL/min/; MAGNESIUM 2.1 mg/dl (1.3-2.7); POTASSIUM 3.9 MEQ/L (3.7-5.4); SAMPLE HEMOLYSIS CHECK 0; SAMPLE ICTERIC CHECK 0; SAMPLE LIPEMIA CHECK 0; SODIUM 136 MEQ/L (136-147); UREA NITROGEN (BUN) 14 mg/dL (9-23)
[2017-03-25 06:01] LABS: GLUCOSE 96 mg/dL (70-99)
[2017-03-25 07:58] VITALS: BP 110/58
[2017-03-25 11:58] LABS: POINT-OF-CARE METER ID UU14188577
[2017-03-25 16:46] VITALS: BP 116/58
[2017-03-25 20:28] VITALS: BP 114/68
[2017-03-25 22:35] LABS: POINT-OF-CARE METER ID UU14188577
[2017-03-26 00:53] VITALS: BP 120/65
[2017-03-26 04:00] VITALS: BP 125/60
[2017-03-26 05:03] LABS: EOSINOPHIL (%) 2.3 % (0-5); EOSINOPHIL COUNT 0.1 K/uL (0-0.3); HEMATOCRIT 27.3 % (38.0-50.0); IMMATURE GRANULOCYTE (%) 0.2 % (0.0-0.7); INSTRUMENT ABS NEUTROPHIL CT 2.7 K/uL; LYMPHOCYTE COUNT 1.5 K/uL (1.0-2.8); MCH 33.3 PG (29.0-34.0); MCHC 32.2 G/DL (30.0-36.0); MCV 103.4 FL (86-99); MEAN PLAT.VOLUME 9.4 uM^3 (9.0-12.4); MONOCYTE (%) 7.7 % (3-12); MONOCYTE COUNT 0.4 K/uL (0-0.8); NEUTROPHIL (%) 58.5 % (45-76); NEUTROPHIL COUNT 2.7 K/uL (1.8-6.4); PLATELET COUNT 382 K/uL (156-360); RBC DIS.WIDTH-CV 15.7 % (11.8-14.6); RED BLOOD COUNT 2.64 M/uL (4.00-5.50); WHITE BLOOD COUNT 4.7 K/uL (4.1-10.2)
[2017-03-26 05:17] LABS: CHLORIDE 103 mEq/L (99-109); POTASSIUM 4.3 mEq/L (3.7-5.4); SODIUM 135 mEq/L (136-147)
[2017-03-26 05:18] LABS: MAGNESIUM 1.8 mg/dL (1.3-2.7)
[2017-03-26 05:19] LABS: GLUCOSE 120 mg/dL (70-99)
[2017-03-26 05:21] LABS: ANION GAP 7 MEQ/L (2-14)
[2017-03-26 05:23] LABS: GFR ESTIMATE (CALCULATED) > 59 mL/min/
[2017-03-26 05:24] LABS: UREA NITROGEN (BUN) 15 mg/dL (9-23)
[2017-03-26 07:37] VITALS: BP 116/59
[2017-03-26 11:08] VITALS: BP 103/52
[2017-03-26 11:55] LABS: POINT-OF-CARE METER ID UU14149397
[2017-03-26 14:58] VITALS: BP 106/64
[2017-03-26 16:52] LABS: POINT-OF-CARE METER ID UU14188577
[2017-03-26 20:36] VITALS: BP 112/56
[2017-03-26 21:33] LABS: POINT-OF-CARE METER ID UU14149397
[2017-03-27] VITALS (7 sets, daily range): BP systolic 11–116; BP diastolic 51–72
[2017-03-27 05:47] LABS: ANION GAP 4 MEQ/L (2-14); CHLORIDE 101 MEQ/L (99-109); GFR ESTIMATE (CALCULATED) > 59 mL/min/; POTASSIUM 4.4 MEQ/L (3.7-5.4); SAMPLE HEMOLYSIS CHECK 0; SAMPLE ICTERIC CHECK 0; SAMPLE LIPEMIA CHECK 0; SODIUM 137 MEQ/L (136-147); UREA NITROGEN (BUN) 16 mg/dL (9-23)
[2017-03-27 06:04] LABS: EOSINOPHIL (%) 2.7 % (0-5); EOSINOPHIL COUNT 0.1 K/uL (0-0.3); HEMATOCRIT 26.8 % (38.0-50.0); IMMATURE GRANULOCYTE (%) 0.4 % (0.0-0.7); LYMPHOCYTE COUNT 1.7 K/uL (1.0-2.8); MCH 33.5 PG (29.0-34.0); MCHC 31.7 G/DL (30.0-36.0); MCV 105.5 FL (86-99); MEAN PLAT.VOLUME 9.4 uM^3 (9.0-12.4); MONOCYTE (%) 7.2 % (3-12); MONOCYTE COUNT 0.4 K/uL (0-0.8); NEUTROPHIL (%) 56.7 % (45-76); PLATELET COUNT 350 K/uL (156-360); RBC DIS.WIDTH-CV 16.2 % (11.8-14.6); RBC DIS.WIDTH-SD 60.4 % (39-53); RED BLOOD COUNT 2.54 M/uL (4.00-5.50); WHITE BLOOD COUNT 5.3 K/uL (4.1-10.2)
[2017-03-27 06:17] LABS: GLUCOSE 74 mg/dL (70-99)
[2017-03-27 16:32] LABS: POINT-OF-CARE METER ID UU14188577
[2017-03-27 21:27] LABS: POINT-OF-CARE METER ID UU14149397
[2017-03-28 10:36] LABS: THROMBIN TIME+ 26 sec
== END 2017-03-28 01:15 | disposition short-term general hospital (02) | DRG 853 ==
LOC: EME 17:47 → 4WEST 23:09 → 4SOUTH 23:09 → EDOF 23:09 → 4SOUTH 03-08 15:17 → 4WEST 03-09 13:37 → 3EAST 03-18 18:27
PROVIDERS: Emergency Medicine; Hospitalist; Internal Medicine; Internal Medicine Cardiovascular Disease; Internal Medicine Critical Care Medicine; Internal Medicine Hematology & Oncology; Internal Medicine Infectious Disease; Internal Medicine Nephrology; Internal Medicine Pulmonary Disease; Nurse Practitioner Family; Physician Assistant
PROC: B24BZZ4 Ultrasonography of Heart with Aorta, Transesophageal (ICD-10-PCS; principal; 2017-03-13)
PROC: 06H03DZ Insertion of Intraluminal Device into Inferior Vena Cava, Percutaneous Approach (ICD-10-PCS; 2017-03-23)
DX: A41.01 Sepsis due to Methicillin susceptible Staphylococcus aureus (principal); I26.99 Other pulmonary embolism without acute cor pulmonale; J96.01 Acute respiratory failure with hypoxia; I82.492 Acute embolism and thrombosis of other specified deep vein of left lower extremity; I10 Essential (primary) hypertension; E11.9 Type 2 diabetes mellitus without complications; N17.9 Acute kidney failure, unspecified; D69.6 Thrombocytopenia, unspecified; E66.9 Obesity, unspecified; M25.511 Pain in right shoulder; R65.20 Severe sepsis without septic shock; E87.2 Acidosis; G89.29 Other chronic pain; I25.810 Atherosclerosis of coronary artery bypass graft(s) without angina pectoris; Z79.4 Long term (current) use of insulin; K21.9 Gastro-esophageal reflux disease without esophagitis; M86.9 Osteomyelitis, unspecified; M00.9 Pyogenic arthritis, unspecified; R00.0 Tachycardia, unspecified; I49.9 Cardiac arrhythmia, unspecified; I82.402 Acute embolism and thrombosis of unspecified deep veins of left lower extremity; M25.519 Pain in unspecified shoulder; R07.9 Chest pain, unspecified; I25.10 Atherosclerotic heart disease of native coronary artery without angina pectoris; M19.90 Unspecified osteoarthritis, unspecified site; K76.0 Fatty (change of) liver, not elsewhere classified; R82.71 Bacteriuria; I48.91 Unspecified atrial fibrillation; M25.512 Pain in left shoulder; I34.0 Nonrheumatic mitral (valve) insufficiency; W19.XXXA Unspecified fall, initial encounter; E78.00 Pure hypercholesterolemia, unspecified; E03.9 Hypothyroidism, unspecified; G47.33 Obstructive sleep apnea (adult) (pediatric); I25.2 Old myocardial infarction; Z79.01 Long term (current) use of anticoagulants; Z68.37 Body mass index [BMI] 37.0-37.9, adult; Z95.5 Presence of coronary angioplasty implant and graft; R65.21 Severe sepsis with septic shock
CPT/HCPCS: 36600; 70450; 71010; 71260; 71275; 72125; 72156; 73030; 73564; 74000; 76536; 76604; 76705; 76937; 78315; 80048; 80048 91; 80053; 80076; 80202; 81003; 81240 90; 82140; 82550; 82550 91; 82607; 82746; 82803; 82948; 83036; 83090 90; 83605; 83735; 83880; 84100; 84443; 84484; 85025; 85027; 85240 90; 85300 90; 85303 90; 85305 90; 85306 90; 85307 90; 85610; 85613 90; 85651; 85670 90; 85730; 85730 90; 86022 90; 86140; 86146 90; 86147 90; 87040; 87070; 87075; 87076; 87077; 87086; 87147; 87185; 87186; 87205; 87502; 87641; 87801; 89051; 89060; 93005; 93306; 93312; 93970; 93971; 94010; 94640; 94640 76; 94660; 94667; 94668; 94760; 94799; 97530 GP; 99202; 99281; 99285; A9503; C1769; C1894; G0480; J0360; J0690; J0696; J0744; J1160; J1170; J1200; J1630; J1815; J1940; J2060; J2270; J2405; J2920; J2930; J3010; J3370; J3475; J3480; J3486; J7030; J7050; J7512; Q0177; S0028; S0032